=== PATIENT | male | born 1965 | race Caucasian/White ===

== ENCOUNTER 2017-10-08 09:59 | Emergency (ER) | payer OTHER ==
[2017-10-08 10:05] VITALS: BP 146/83; PULSE 68; RESP 18; TEMP 98.1; O2SAT 97
[2017-10-08] MEDS ORDERED: KETOROLAC 15 MG/1 ML SDV IVP ONE (10:28)
[2017-10-08] MEDS ORDERED: KETAMINE 200 MG/20 ML VIAL IVP ONE (10:28)
--- NOTE | 2017-10-08 10:29 | EDPHY ---
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 Atraumatic. No foot drop. No back pain. No incontinence no retention. No discoloration. The PRIMARY CARE PROVIDER: In [place] REVIEW OF SYSTEMS: A ten point review of systems was performed and is negative with the exception of the items mentioned in the HPI PAST MEDICAL & SURGICAL HISTORY: Chronic left lower extremity pain SOCIAL HISTORY: Visiting from [place] PHYSICAL EXAM (Prior to examination, patient consented to physical exam, hands were washed and my usual and customary physical exam procedures followed) 1) GENERAL: Well-developed, well-nourished, alert and oriented. Appears uncomfortable. 2) HEAD: Normocephalic, atraumatic 3) HEENT: Pupils equal, round, reactive to light bilaterally. Sclera anicteric. 4) NECK: Full range of motion, no meningeal signs. 5) LUNGS: Clear auscultation bilaterally, no wheezes, no rhonchi, no retractions. 6) HEART: Regular rate and rhythm, no murmur, no heave, no gallop. 7) ABDOMEN: No guarding, no rebound, no focal tenderness,, 8) MUSCULOSKELETAL: Left lower extremity has soft compartments, specifically the calf is soft however does have some tenderness to palpation. No visible or palpable abnormality beyond pain. DP PT pulses are present and brisk with normal color normal temperature distally. 9) BACK: No CVA tenderness, no midline vertebral tenderness, no fluctuance, no step-off, no obvious trauma, no visual or palpable abnormality. Patella and Achilles reflexes are brisk and equal bilaterally. 10) SKIN: No rash, no petechiae. 11) Psychiatric: Patient is oriented X 3, there is no agitation. DIFFERENTIAL DIAGNOSIS: In no particular include but limited to DVT, compartment syndrome, infectious etiology, acute exacerbation of chronic pain, lumbar radiculopathy. (Veena,D Betty) Constitutional: Initial Vital Signs Temperature (C) 36.7 C 10/08/17 10:00 Heart Rate 68 10/08/17 10:00 Respiratory Rate 18 10/08/17 10:00 Blood Pressure 146/83 H 10/08/17 10:00 O2 Sat (%) 97 10/08/17 10:00 O2 Delivery Mode Room Air Allergies/Adverse Reactions: No Known Allergies Allergy (Verified 10/08/17 10:02) Home Medications: Medication Instructions Recorded Acetaminophen/Codeine 300/30Mg 1 each PO Q6 10/08/17 [Tylenol #3 (*)] Hiv Med 10/08/17 MDM/Departure - MDM Medications Given: Discontinued Medications Dexamethasone (Decadron Injection) 8 mg IVP EDNOW ONE Stop: 10/08/17 11:24 Last Admin: 10/08/17 11:36 Dose: 8 mg Diazepam (Valium) 5 mg IVP EDNOW ONE Stop: 10/08/17 11:24 Last Admin: 10/08/17 12:11 Dose: Not Given Diazepam (Valium) 5 mg PO EDNOW ONE Stop: 10/08/17 11:40 Last Admin: 10/08/17 11:40 Dose: 5 mg Gabapentin (Neurontin) 600 mg PO EDNOW ONE Stop: 10/08/17 11:24 Last Admin: 10/08/17 11:35 Dose: 600 mg Haloperidol Lactate (Haldol Injection) 2.5 mg IVP EDNOW ONE Stop: 10/08/17 11:29 Last Admin: 10/08/17 11:35 Dose: 2.5 mg Ketamine HCl (Ketamine) 15 mg 0.2 mg/kg (15 mg) IVP EDNOW ONE Stop: 10/08/17 10:29 Last Admin: 10/08/17 10:38 Dose: 15 mg Ketorolac Tromethamine (Toradol) 15 mg IVP EDNOW ONE Stop: 10/08/17 10:29 Last Admin: 10/08/17 10:38 Dose: 15 mg ED Course/Re-evaluation: 10:29 a.m.: This patient is complaining of left calf pain for the past 3 days and states that it feels swollen. He has soft compartments and examined I doubt compartment syndrome at this time. He does note that he has had a history of chronic left calf pain for 20 years. I recommended ultrasound which she is agreeable with. I discussed the [facility] alternatives to opiates as he requested first-line morphine. I recommended we have a trial of ketamine and Toradol. He is agreeable with this. 11:15 a.m.: Informed by nursing staff that he has received Toradol and ketamine and he is refusing ultrasound unless he receives opiates. 11:27 a.m.: I re-evaluated the patient he is complaining of continued pain with no relief. He refuses the ultrasound to the receives further pain medication. We discussed the hospital alternatives to opiates program. The patient was re-evaluated with serial examinations by myself and the nurse. In speaking with the patient there are numerous inconsistencies information he was providing to me and the nurse. He continues to complain of pain, refused to the ultrasound and stated he would leave the emergency department if you would not receive opiates. Subsequently was observed walking out of the emergency department. He refused to sign AMA instructions. He was informed that he was leaving against medical advice. In my professional opinion, I think the patient necessitates further evaluation. By leaving AGAINST MEDICAL ADVICE he has verbalized understanding and acceptance of the risks of leaving AGAINST MEDICAL ADVICE, including, but not limited to, , permanent and chronic disability, permanent and chronic loss of income, also bland, and other situations and circumstances too numerous to mention herein. I think he has the capacity to fully understand these risks. I have offered ample opportunity to answer questions. I have offered to speak with family and/or friends regarding this issue as well. Patient has been informed that they are welcome to return to emergency department at any point for reevaluation. (Jean Claude Curiel) I did not see this patient while he was in the emergency department. However his care was discussed with the PA while the patient was in the department. I agree with treatment plan and management (Homer Vega) - Depart Disposition: Against Medical Advice Clinical Impression: Left leg pain Condition: Good Instructions: Leg Pain (ED) Additional Instructions: You have refused ultrasound. You may have a blood clot in your leg. Please follow-up with your doctor in [place] the next 3-5 days, when you return tomorrow. You have left the emergency department against medical advice. It was explained you that run the risk of , permanent and chronic disability and other situations and circumstances too numerous to mention herein. Referrals: Dominique Hopper MD [[facility] [place] Primary Care Provider] - As per Instructions
[2017-10-08] MEDS ORDERED: GABAPENTIN 300 MG CAP PO ONE (11:23)
[2017-10-08] MEDS ORDERED: DEXAMETHASONE 4 MG/ML VIAL IVP ONE (11:23)
[2017-10-08] MEDS ORDERED: DIAZEPAM 5 MG/ML 1 ML SYR IVP ONE (11:23)
[2017-10-08] MEDS ORDERED: HALOPERIDOL LACT 5 MG/ML INJ IVP ONE (11:28)
[2017-10-08] MEDS ORDERED: DIAZEPAM 5 MG TAB ONE (11:33)
[2017-10-08] MEDS ORDERED: DIAZEPAM 5 MG TAB PO ONE (11:39)
== END 2017-10-08 12:35 | disposition left against medical advice (07) ==
DX: M79.605 Pain in left leg (principal)
CPT/HCPCS: 96374; J1100; J1630; J1885